=== PATIENT | female | born 1970 | race Caucasian/White ===

== ENCOUNTER 2017-11-20 16:15 | Emergency (ER) | payer MEDICAID, MEDICARE ==
[~2017-11-20] VITALS: Ht 177.8 cm; Wt 136.0 kg
[~2017-11-20 16:15] MED LIST: ACET-1600 PO; ALBU18HF INH; AMIT100T PO; ATOR-2 PO; ATOR40TA PO; BUDE10.22 INH; BUTA1CAP57 PO; BUTA1CAP59 PO; BUTA1CAP60 PO; CARB200T4 PO; CLON1TAB PO; CYCL5TAB PO; DIAZ10TA PO; ESCI10TA10 PO; ESTR1TAB15 PO; FLUT1BLS INH; FLUT1DIS IH; GABA300T3 PO; HYDR12.547 PO; HYDR25TA11 PO; HYDROXYZINE 25 MG; LEVO75TA5 PO; LIPA1CAP45 PO; LISI-170 PO; LISI5TAB7 PO; METF500T5 PO; METO5TAB5 PO; NORT75CA PO; NORT75CA4 PO; OMEP20CA9 PO; OMEP40CA6 PO; OXYC-306 PO; OXYC1TAB7 PO; OXYGEN INH; PHENERGAN PO; POTA10CA PO; POTA10PI PO; POTASSIUM 10MEQ; PRED5TAB PO; PREG100C PO; PROM25TA10 PO; PROM25VI5 PO; TRAM100T3 PO; TRAM50TA2 PO; WARF5TAB PO
[2017-11-20 16:57] LABS: BASOPHILS # (AUTO) 0.04 x10^3/uL (0-0.1); BASOPHILS % (AUTO) 1 % (0-1); EOSINOPHILS # (AUTO) 0.17 x10^3/uL (0-0.4); EOSINOPHILS % (AUTO) 2 % (1-7); LYMPHOCYTES # (AUTO) 2.72 x10^3/uL (1-3.4); LYMPHOCYTES % (AUTO) 37 % (22-44); MD NO; MEAN CORPUSCULAR HEMOGLOBIN 28.9 pg (27.0-34.8); MEAN CORPUSCULAR HGB CONC 33.1 g/dL (32.4-35.8); MEAN CORPUSCULAR VOLUME 87.3 fL (80-100); MEAN PLATELET VOLUME 8.6 fL (7.4-10.4); MONOCYTES # (AUTO) 0.37 x10^3/uL (0.2-0.8); MONOCYTES % (AUTO) 5 % (2-9); NEUTROPHILS # (AUTO) 4.08 x10^3/uL (1.8-6.8); NEUTROPHILS % (AUTO) 55 % (42-75); PLATELET COUNT 481 x10^3/uL (130-400); RED BLOOD COUNT 4.79 x10^6/uL (3.82-5.3); RED CELL DISTRIBUTION WIDTH 15.9 % (9.6-15.2)
[2017-11-20] MEDS ORDERED: SODIUM CHLORIDE FLUSH 10ML SYR IVF ONE (17:00)
[2017-11-20 17:08] LABS: ALANINE AMINOTRANSFERASE 35 U/L (12-78); ALBUMIN 3.3 g/dL (3.4-5.0); ANION GAP 8 mmol/L (5-15); CALCIUM 9.5 mg/dL (8.5-10.1); CHLORIDE 107 mmol/L (98-107); CREATININE 0.86 mg/dL (0.55-1.02)
[2017-11-20 17:10] LABS: ALKALINE PHOSPHATASE 176 U/L (45-117); BILIRUBIN,TOTAL 0.2 mg/dL (0.2-1.0); TOTAL PROTEIN 7.6 g/dL (6.4-8.2)
[2017-11-20 17:53] VITALS: BP 114/65
[2017-11-20] MEDS ORDERED: OMNIPAQUE 350 MG/ML, 150 ML BOTTLE ONE (17:55)
[2017-11-20] MEDS ORDERED: ONDANSETRON 2MG/ML, 2ML ONE (19:12)
[2017-11-20] MEDS ORDERED: HYDROmorphone 2 MG/ML, 1ML ONE ×2 (19:14→20:05)
[2017-11-20] MEDS: HYDROmorphone 1 MG/ML, 1ML IVPush PRN ×2 (19:16→20:07)
[2017-11-20] MEDS ORDERED: ONDANSETRON 2MG/ML, 2ML IVPush ONE (19:30)
== END 2017-11-20 20:29 | disposition home or self-care (01) ==
LOC: ED 18:34
DX: R10.84 Generalized abdominal pain (principal); R07.89 Other chest pain; J06.9 Acute upper respiratory infection, unspecified; K21.9 Gastro-esophageal reflux disease without esophagitis; J44.9 Chronic obstructive pulmonary disease, unspecified; I10 Essential (primary) hypertension; E11.9 Type 2 diabetes mellitus without complications; Z88.0 Allergy status to penicillin; Z88.1 Allergy status to other antibiotic agents
CPT/HCPCS: 36415; 71046; 71275; 74177; 80053; 85025; 93005; 96374; 96375; 96376; 99285; J1170; J2405; Q9967

== ENCOUNTER 2017-12-25 19:50 | Emergency (ER) | payer MEDICAID, MEDICARE ==
[~2017-12-25] VITALS: Ht 175.3 cm; Wt 132.9 kg
[2017-12-25] MEDS ORDERED: ACETAMINOPHEN 325 MG TABLET PO ONE (21:00)
[2017-12-25] MEDS ORDERED: DEXAMETHASONE 4 MG/ML, 1ML IVPush ONE ×2 (21:00→22:30)
[2017-12-25] MEDS ORDERED: SODIUM CHLORIDE FLUSH 10ML SYR IVF ONE (21:00)
[2017-12-25] MEDS ORDERED: METOCLOPRAMIDE 5 MG/ML, 2ML IVPush ONE (21:00)
[2017-12-25] MEDS ORDERED: SODIUM CHLORIDE 0.9% 1,000ML IVBOLUS ONE (21:00)
[2017-12-25] MEDS ORDERED: hydrOXYzine 50 MG/ML IM ONE (21:00)
[2017-12-25] MEDS ORDERED: DIHYDROERGOTAMINE 1 MG/ML, 1ML IM ONE (21:00)
[2017-12-25] MEDS ORDERED: KETOROLAC 30 MG/1 ML IVPush ONE (21:00)
[2017-12-25] MEDS ORDERED: hydrOXYzine 25 MG/ML IM ONE (21:30)
[2017-12-25] MEDS ORDERED: DEXAMETHASONE 4 MG/ML, 1ML ONE (21:59)
[2017-12-25] MEDS ORDERED: METOCLOPRAMIDE 5 MG/ML, 2ML ONE (21:59)
[2017-12-25] MEDS ORDERED: KETOROLAC 30 MG/1 ML ONE (21:59)
[2017-12-25] MEDS ORDERED: ACETAMINOPHEN 500 MG TABLET ONE (22:00)
[2017-12-26 00:15] VITALS: BP 169/134
[2017-12-26] MEDS ORDERED: KETOROLAC 30 MG/1 ML ONE (00:19)
[2017-12-26] MEDS ORDERED: KETOROLAC 30 MG/1 ML IVPush ONE (00:30)
== END 2017-12-26 00:38 ==
LOC: ED 23:35
DX: G43.011 Migraine without aura, intractable, with status migrainosus (principal); I10 Essential (primary) hypertension; J44.9 Chronic obstructive pulmonary disease, unspecified; K21.9 Gastro-esophageal reflux disease without esophagitis; E11.40 Type 2 diabetes mellitus with diabetic neuropathy, unspecified; G89.29 Other chronic pain; E78.5 Hyperlipidemia, unspecified; Z90.49 Acquired absence of other specified parts of digestive tract; Z90.710 Acquired absence of both cervix and uterus; Z90.89 Acquired absence of other organs; Z98.51 Tubal ligation status
CPT/HCPCS: 96372; 96374; 96375; 96376; 99284; J1100; J1110; J1885; J2765; J3410; J7030

== ENCOUNTER 2020-12-04 17:07 | Emergency (ER) | payer OTHER, MEDICAID ==
[~2020-12-04] VITALS: Ht 172.7 cm; Wt 132.6 kg
[~2020-12-04 17:07] MED LIST changes: +ALBU0.63 NEB; +AMIL1TAB PO; +HYDR-826 PO; -HYDR25TA11 PO; +LISI-167 PO; +METF500T17 PO; -METF500T5 PO; -OMEP40CA6 PO; +OMEP40CA8 PO; -OXYC-306 PO; +OXYC1TAB17 PO; -WARF5TAB PO; +WARF5TAB2 PO
[2020-12-04 17:20] VITALS: BP 143/79
[2020-12-04] MEDS ORDERED: ACETAMINOPHEN 500 MG TABLET ONE (17:45)
--- NOTE | 2020-12-04 17:48 | NUR ---
PT AT XRAY
[2020-12-04] MEDS ORDERED: ACETAMINOPHEN 500 MG TABLET PO ONE (18:00)
--- NOTE | 2020-12-04 18:18 | NUR ---
PT BACK FROM XRAY. 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
--- NOTE | 2020-12-04 19:08 | NUR ---
PT GOING TO CT.
--- NOTE | 2020-12-04 19:25 | NUR ---
ALL RESULTS ARE BACK AT THIS TIME. CHART UP FOR RECHECK.
--- NOTE | 2020-12-04 19:43 | NUR ---
RECEIVED N/O FOR XRAY. XR AT BEDSIDE.
[2020-12-04] MEDS ORDERED: KETOROLAC 30 MG/1 ML ONE (19:51)
--- NOTE | 2020-12-04 19:55 | NUR ---
DIRECTOR HOME PER MAR.
[2020-12-04] MEDS ORDERED: KETOROLAC 30 MG/1 ML IM ONE (20:00)
--- NOTE | 2020-12-04 20:18 | NUR ---
ALL RESULTS ARE BACK AT THIS TIME. CHART UP FOR RECHECK.
[2020-12-04] MEDS ORDERED: OXYcodone/APAP 5/325MG TABLET ONE (20:56)
[2020-12-04] MEDS ORDERED: OXYcodone/APAP 10/325MG TABLET PO ONE (21:00)
[2020-12-04] MEDS ORDERED: OXYcodone/APAP 10/325MG TABLET ONE (21:00)
== END 2020-12-04 21:16 | disposition home or self-care (01) ==
LOC: ED 21:10
DX: S53.402A Unspecified sprain of left elbow, initial encounter (principal); S83.91XA Sprain of unspecified site of right knee, initial encounter; S83.92XA Sprain of unspecified site of left knee, initial encounter; S50.02XA Contusion of left elbow, initial encounter; E11.9 Type 2 diabetes mellitus without complications; J45.909 Unspecified asthma, uncomplicated; E78.5 Hyperlipidemia, unspecified; G43.909 Migraine, unspecified, not intractable, without status migrainosus; W18.30XA Fall on same level, unspecified, initial encounter; Y93.89 Activity, other specified; Y92.009 Unspecified place in unspecified non-institutional (private) residence as the place of occurrence of the external cause; Y99.8 Other external cause status
CPT/HCPCS: 70450; 73080; 73110; 73564; 73590; 96372; 99284; J1885